=== PATIENT | male | born 1955 | race Caucasian/White ===

== ENCOUNTER 2018-01-02 10:34 | Emergency (ER) | payer MEDICARE ==
[2014-02-02 08:42] VITALS: BMI 70.9
[~2018-01-02 10:34] MED LIST: AMBIEN10 MG PO; CEFTRIAXONE2 G/50 ML IV; CLEOCIN HCL300 MG PO; DILAUDID INJ2 MG/ML IV; K-DUR20 MEQ PO; LAC-HYDRIN 5226 ML TP; LASIX40 MG PO; LEVAQUIN750 MG PO; LOVENOX40 MG/0.4 SQ; NORCO 10/325 TA1 TA1 PO; ONDANSETRON4 MG/2 M3 IV; PHENERGAN25 MG/ML IV; SALINE FLUSH10 ML IV; SOMA350 MG PO; VANCOMYCIN 500500 MG IVPB; VANCOMYCIN250 MG/51 IV
[2018-01-02 11:09] LABS: BASOPHILS 0.5 % (0-2); EOSINOPHILS 5.3 % (0-7); HEMATOCRIT 41.1 % (42.0-54.0); HEMOGLOBIN 14.7 g/dL (13.5-17.5); IMMATURE GRANULOCYTES 0.3 % (0-5); LYMPHOCYTES 22.6 % (15-50); MCH 32.2 pg (26.0-34.0); MCHC 35.8 g/dL (31.0-37.0); MCV 89.9 fL (80.0-100.0); MEAN PLATELET VOLUME 10.3 fL (7.4-10.4); MONOCYTES 8.8 % (2-11); NEUTROPHILS 62.5 % (40-80); PLATELET COUNT 223 10x3/uL (130-400); RBC 4.57 10x6/uL (4.20-6.10); RDW 13.5 % (11.5-14.5); WBC 3.8 10x3/uL (4.8-10.8)
[2018-01-02 11:59] LABS: ALBUMIN 3.6 g/dL (3.4-5.0); ALKALINE PHOSPHATASE 29 U/L (46-116); ALT (SGPT) 31 U/L (10-68); CALC OSMOLALITY 282 mosm/kg (275-300); CALCIUM 8.9 mg/dL (8.5-10.1); CARBON DIOXIDE 32.1 mmol/L (21.0-32.0); CHLORIDE - SERUM 104 mmol/L (98-107); CREATININE - SERUM 0.9 mg/dL (0.6-1.3); GLUCOSE 96 mg/dL (74-106); POTASSIUM - SERUM 3.8 mmol/L (3.5-5.1); PROTEIN - SERUM 6.9 g/dL (6.4-8.2); SODIUM 141 mmol/L (136-145); UREA NITROGEN 18 mg/dL (7-18); eGFR NON AFRICAN AMERICAN > 90 mL/min (90-120)
[2018-01-02 12:12] LABS: CKMB 0.4 U/L (0.0-3.6); CREATINE KINASE 37 UL (21-232); PRO BNP 19 pg/mL (0-125)
[2018-01-02 12:15] LABS: TROPONIN-I < 0.017 ng/mL (0.000-0.060)
== END 2018-01-02 12:50 | disposition home or self-care (01) ==
LOC: D.ER 10:34
PROVIDERS: Family Medicine
DX: R07.9 Chest pain, unspecified (principal)

== ENCOUNTER 2018-12-16 17:52 | Inpatient (IN) | payer MEDICARE ==
[~2018-12-16] VITALS: Ht 175.3 cm; Wt 211.4 kg
[2018-12-16 18:31] LABS: BASOPHILS 0.2 % (0-2); EOSINOPHILS 0 % (0-7); HEMATOCRIT 43.7 % (42.0-54.0); HEMOGLOBIN 14.7 g/dL (13.5-17.5); IMMATURE GRANULOCYTES 1.1 % (0-5); MCH 30.4 pg (26.0-34.0); MCHC 33.6 g/dL (31.0-37.0); MCV 90.3 fL (80.0-100.0); MEAN PLATELET VOLUME 10.2 fL (7.4-10.4); MONOCYTES 3.4 % (2-11); NEUTROPHILS 91.3 % (40-80); PLATELET COUNT 190 10x3/uL (130-400); RBC 4.84 10x6/uL (4.20-6.10); RDW 14.6 % (11.5-14.5); WBC 12.4 10x3/uL (4.8-10.8)
[2018-12-16] MEDS ORDERED: SULFAMETHOXAZOL1 TA3 PO (18:37)
[2018-12-16] MEDS ORDERED: BACLOFEN20 M1 PO (18:38)
[2018-12-16 18:45] LABS: ALBUMIN 2.9 g/dL (3.4-5.0); ANION GAP 16.2 mmol/L (8-16); BILIRUBIN - TOTAL 0.9 mg/dL (0.2-1.3); CALCIUM 8.2 mg/dL (8.5-10.1); CARBON DIOXIDE 22.9 mmol/L (21.0-32.0); CREATININE - SERUM 1.6 mg/dL (0.6-1.3); POTASSIUM - SERUM 4.1 mmol/L (3.5-5.1); PROTEIN - SERUM 6.7 g/dL (6.4-8.2)
--- NOTE | 2018-12-16 19:15 | NUR ---
SPOKE WITH LEANA WITH PHARMACY ABOUT ORDERED VANC 1.5 G INSTRUCTED TO ADMINISTER OVER 2 HOURS NOT 90 MIN ORDER PREVIOUSLY STATED. HANDOFF REPORT GIVEN TO MARGOTH GUTIERREZ.
[2018-12-16 19:17] VITALS: BP 126/62
--- NOTE | 2018-12-16 19:29 | NUR ---
PT'S LACTIC ACID 3.5, DR COURTNEY CONTACTED AND NOTIFIED, NO NEW ORDERS GIVEN.
[2018-12-16 20:32] VITALS: BP 120/52
[2018-12-17 00:10] VITALS: BP 116/58
[2018-12-17 03:58] VITALS: BP 106/50
[2018-12-17 06:37] LABS: BASOPHILS 0.1 % (0-2); EOSINOPHILS 0.1 % (0-7); HEMOGLOBIN 12.5 g/dL (13.5-17.5); IMMATURE GRANULOCYTES 0.7 % (0-5); LYMPHOCYTES 4.6 % (15-50); MCH 29.6 pg (26.0-34.0); MCHC 32.9 g/dL (31.0-37.0); MEAN PLATELET VOLUME 10.6 fL (7.4-10.4); MONOCYTES 4.3 % (2-11); NEUTROPHILS 90.2 % (40-80); PLATELET COUNT 167 10x3/uL (130-400); RBC 4.22 10x6/uL (4.20-6.10); RDW 14.8 % (11.5-14.5); WBC 9.8 10x3/uL (4.8-10.8)
[2018-12-17 06:51] LABS: ALBUMIN 2.2 g/dL (3.4-5.0); ANION GAP 14.8 mmol/L (8-16); BILIRUBIN - TOTAL 0.75 mg/dL (0.2-1.3); CALCIUM 7.7 mg/dL (8.5-10.1); CARBON DIOXIDE 23.5 mmol/L (21.0-32.0); CREATININE - SERUM 1.3 mg/dL (0.6-1.3); MAGNESIUM - SERUM 1.6 mg/dL (1.8-2.4); POTASSIUM - SERUM 4.3 mmol/L (3.5-5.1); PROTEIN - SERUM 5.6 g/dL (6.4-8.2)
[2018-12-17 08:23] VITALS: BP 93/69
--- NOTE | 2018-12-17 08:26 | NUR ---
PT RESTING IN BED. NO SIGNS OF DISTRESS. IV TO LEFT AC PATENT NO REDNESS OR TENDERNESS. ON TELEMETRY 105 SINUS TACH. LEGS SWOLLEN. DENIES ANY NEED AT THIS TIME. CALL LIGHT IN REACH. BED LOW POSITION. FAMILY AT BEDSIDE.
[2018-12-17 09:54] LABS: APPEARANCE HAZY (CLEAR); BILIRUBIN NEGATIVE (NEGATIVE); COLOR DK YELLOW (YELLOW); GLUCOSE NEGATIVE (NEGATIVE); KETONE NEGATIVE (NEGATIVE); NITRITE NEGATIVE (NEGATIVE); PROTEIN TRACE mg/dL (NEGATIVE); UROBILINOGEN NORMAL (NORMAL)
[2018-12-17 09:59] LABS: AMORPHOUS SEDIMENT <1+ /lpf (NONE SEEN); BACTERIA FEW /hpf (NONE SEEN); EPITHELIAL CELLS OCC /hpf (0-5); GRANULAR CAST OCC /lpf (NONE SEEN); HYALINE CAST RARE /lpf (NONE SEEN); RED CELLS - URINE RARE /hpf (0-5); WHITE CELLS - URINE OCC /hpf (0-5)
[2018-12-17 10:30] VITALS: BMI 66.4
[2018-12-17 13:17] VITALS: BP 101/64
--- NOTE | 2018-12-17 13:28 | NUR ---
RN ROUNDING DONE WITH MARYLIN WOLFE PRIMARY NURSE IN ROOM GIVING IV PAIN MEDICATION. PATIENT RIGHT LEG FROM UPPER THIGH TO FOOT IS VERY SWOLLEN AND RED. PATIENT REPORTS THAT SINCE 2008 IT STARTED AND JUST GETTING BIGGER WITH TIME. GROIN IS RED AND SWOLLEN. TORI JIMÉNEZ WITH GENERAL SURGERY IN ROOM ALSO.
--- NOTE | 2018-12-17 14:44 | MORECARE ---
CASE MANAGEMENT DISCHARGE SUMMARY PATIENT: SHELIA MIGUEL UNIT: [id number] ADM DATE: 12/16/18 AGE: 63 : 59 SEX: M ROOM/BED: D.1207 AUTHOR: GABY SHEPARD PHYSICIAN: REFERRING PHYSICIAN: ELISHA COURTNEY DO DATE OF SERVICE: 12/17/18 Discharge Plan Patient Name: SHELIA MIGUEL Facility: [facility]:[place] : 1955 Planned Disposition: Anticipated Discharge Date: Discharge Date: Expected LOS: Initial Reviewer: [email or web address] Initial Review Date: 12/17/2018 Generated: 12/17/18 3:44 pm Comments DCP- Discharge Planning Updated by [id number]: Nancy Garcia on 12/17/18 1:[address] Patient Name: SHELIA MIGUEL Admission Status: ER Accout number: [id number] Admission Date: 12-16-2018 : 1955 Admission Diagnosis: Attending: ELISHA COURTNEY Current LOS: 1 Anticipated DC Date: Planned Disposition: Primary Insurance: MEDICARE A & B Discharge Planning Comments: CM MET WITH PATIENT ABOUT DC PLANNING/NEEDS. PATIENT STATES HAS DME AT HOME, DOESN'T KNOW OF ANY NEEDS YET. CM WILL FOLLOW AND ASSIST NEEDED WITH DC PLANNING/NEEDS. STATES LIVES AT HOME WITH . Drying Room Attendant: Nancy Garcia DCPIA - Discharge Planning Initial Assessment Updated by [email or web address]: Nancy Garcia on 12/17/18 2:41 pm * Is the patient Alert and Oriented? Yes * PCP OLIVER * Pharmacy [facility] * Preadmission Environment Home with Family * ADLs Independent * Equipment Cane CPAP Hospital Bed * List name and contact numbers for known caregivers / representatives who currently or will assist patient after discharge: BECKY DICKINSON, * Community resources currently utilized None * Can the patient safely return to the preadmission environment? Yes * Has this patient been hospitalized within the prior 30 days at any hospital? No Patient Name: SHELIA MIGUEL Page [phone] at 1444 All edits/amendments must be made on the electronic document DICTATION DATE: 12/17/18 1443 BURLAPPER: BRAVO 12/17/18 1443 RPT#: [id number] DC DATE: STATUS: ADM IN [facility] [address] [place] [address] END OF REPORT
[2018-12-17 15:18] VITALS: Ht 175.3 cm; Wt 211.4 kg
[2018-12-17 16:54] VITALS: BP 102/46
[2018-12-17 20:10] VITALS: BP 136/55
[2018-12-18 00:54] VITALS: BP 141/53
[2018-12-18 05:03] VITALS: BP 112/67
[2018-12-18 06:47] LABS: BASOPHILS 0.1 % (0-2); EOSINOPHILS 0 % (0-7); HEMOGLOBIN 13.1 g/dL (13.5-17.5); IMMATURE GRANULOCYTES 0.3 % (0-5); LYMPHOCYTES 3.6 % (15-50); MCHC 33.6 g/dL (31.0-37.0); MCV 89.2 fL (80.0-100.0); MEAN PLATELET VOLUME 10.8 fL (7.4-10.4); MONOCYTES 2.4 % (2-11); NEUTROPHILS 93.6 % (40-80); PLATELET COUNT 164 10x3/uL (130-400); RBC 4.37 10x6/uL (4.20-6.10); RDW 14.6 % (11.5-14.5)
[2018-12-18 07:12] LABS: ALBUMIN 2.3 g/dL (3.4-5.0); ANION GAP 15.9 mmol/L (8-16); BILIRUBIN - TOTAL 0.82 mg/dL (0.2-1.3); CALCIUM 7.7 mg/dL (8.5-10.1); CARBON DIOXIDE 21.6 mmol/L (21.0-32.0); CREATININE - SERUM 1.1 mg/dL (0.6-1.3); MAGNESIUM - SERUM 1.8 mg/dL (1.8-2.4); POTASSIUM - SERUM 4.5 mmol/L (3.5-5.1); PROTEIN - SERUM 6.4 g/dL (6.4-8.2)
--- NOTE | 2018-12-18 07:45 | NUR ---
RESTING IN BED. PATIENT ON TELEMETRY, SR 71. CALL LIGHT WITHIN REACH. NO DISTRES. RESP EVEN AND UNLABORED.
[2018-12-18 09:20] VITALS: BP 108/67
[2018-12-18 12:12] VITALS: BP 110/57
--- NOTE | 2018-12-18 15:41 | NUR ---
22 GUAGE INSERTED TO R.FA X1 STICK. NOTIFIED PRIMARY NURSE.
--- NOTE | 2018-12-18 19:15 | NUR ---
PATIENT RESTING IN BED WITH NO S/S OF DISTRESS. PATIENT DENIES NEEDS AT THIS TIME. BED IN LOWEST POSITION AND CALL LIGHT WITHIN REACH. ENCOURAGED THE PATIENT TO CALL IF HE HAS NEEDS.
[2018-12-18 20:00] VITALS: BP 119/52
[2018-12-18 23:53] VITALS: BP 102/54
[2018-12-19 04:00] VITALS: BP 137/77
[2018-12-19 05:52] LABS: BASOPHILS 0.2 % (0-2); EOSINOPHILS 0 % (0-7); HEMATOCRIT 38.4 % (42.0-54.0); HEMOGLOBIN 12.9 g/dL (13.5-17.5); IMMATURE GRANULOCYTES 0.5 % (0-5); LYMPHOCYTES 4.3 % (15-50); MCH 29.6 pg (26.0-34.0); MCHC 33.6 g/dL (31.0-37.0); MCV 88.1 fL (80.0-100.0); MEAN PLATELET VOLUME 10.4 fL (7.4-10.4); MONOCYTES 3.6 % (2-11); NEUTROPHILS 91.4 % (40-80); PLATELET COUNT 193 10x3/uL (130-400); RBC 4.36 10x6/uL (4.20-6.10); RDW 14.3 % (11.5-14.5)
[2018-12-19 06:05] LABS: WBC 10.7 10x3/uL (4.8-10.8)
[2018-12-19 06:14] LABS: ALBUMIN 2.3 g/dL (3.4-5.0); ALKALINE PHOSPHATASE 19 U/L (46-116); ALT (SGPT) 20 U/L (10-68); BILIRUBIN - TOTAL 0.46 mg/dL (0.2-1.3); CALC OSMOLALITY 279 mosm/kg (275-300); CALCIUM 7.8 mg/dL (8.5-10.1); CARBON DIOXIDE 22.3 mmol/L (21.0-32.0); CHLORIDE - SERUM 103 mmol/L (98-107); CREATININE - SERUM 0.9 mg/dL (0.6-1.3); GLUCOSE 169 mg/dL (74-106); MAGNESIUM - SERUM 2.1 mg/dL (1.8-2.4); POTASSIUM - SERUM 4.5 mmol/L (3.5-5.1); PROTEIN - SERUM 6.4 g/dL (6.4-8.2); SODIUM 136 mmol/L (136-145); UREA NITROGEN 23 mg/dL (7-18); VANCOMYCIN - TROUGH 11.8 ug/mL (10.0-20.0); eGFR NON AFRICAN AMERICAN > 90 mL/min (90-120)
--- NOTE | 2018-12-19 07:35 | NUR ---
PT RESTING IN BED, EYES OPEN. NO C/O PAIN. NO S/S OF ACUTE DISTRESS NOTED. PT ALERT AND ORIENTED. BLE SWOLLEN, CELLULITIS TO RIGHT LOWER LEG, DRAINING SEROUS FLUID. PT ON ELECTROLYTE PROTOCOL. IV TO RIGHT FOREARM, SITE PATENT WITHOUT REDNESS OR SWELLING, NS INFUSING @ 125ML/HR. PT ON TELEMETRY 68SR. AT BEDSIDE. PT DENIES ANYTHING FURTHER AT THIS TIME. CALL LIGHT IN REACH. WILL CONTINUE TO MONITOR.
[2018-12-19 10:11] VITALS: BP 110/52
[2018-12-19 12:00] VITALS: BP 117/65
[2018-12-19 16:00] VITALS: BP 128/71
--- NOTE | 2018-12-19 19:15 | NUR ---
PT RESTING IN BED, EYES OPEN. NO C/O PAIN. NO S/S OF ACUTE DISTRESS NOTED. PT DENIES ANYTHING FURTHER AT THIS TIME. CALL LIGHT IN REACH. WILL CONTINUE TO MONITOR.
[2018-12-19 19:55] VITALS: BP 119/68
[2018-12-19 23:41] VITALS: BP 115/60
[2018-12-20 03:46] VITALS: BP 136/72
[2018-12-20 05:58] LABS: BASOPHILS 0.2 % (0-2); EOSINOPHILS 0 % (0-7); HEMATOCRIT 38.6 % (42.0-54.0); HEMOGLOBIN 13.2 g/dL (13.5-17.5); IMMATURE GRANULOCYTES 1.8 % (0-5); MCHC 34.2 g/dL (31.0-37.0); MCV 87.7 fL (80.0-100.0); MEAN PLATELET VOLUME 10.9 fL (7.4-10.4); MONOCYTES 4.9 % (2-11); NEUTROPHILS 88.1 % (40-80); PLATELET COUNT 230 10x3/uL (130-400); RDW 14.5 % (11.5-14.5); WBC 8.8 10x3/uL (4.8-10.8)
[2018-12-20 06:32] LABS: ALBUMIN 2.4 g/dL (3.4-5.0); ALKALINE PHOSPHATASE 22 U/L (46-116); CALC OSMOLALITY 281 mosm/kg (275-300); CALCIUM 7.9 mg/dL (8.5-10.1); CARBON DIOXIDE 22.6 mmol/L (21.0-32.0); CHLORIDE - SERUM 103 mmol/L (98-107); CREATININE - SERUM 0.9 mg/dL (0.6-1.3); GLUCOSE 159 mg/dL (74-106); MAGNESIUM - SERUM 2.2 mg/dL (1.8-2.4); POTASSIUM - SERUM 4.4 mmol/L (3.5-5.1); PROTEIN - SERUM 6.8 g/dL (6.4-8.2); SODIUM 137 mmol/L (136-145); UREA NITROGEN 26 mg/dL (7-18); VANCOMYCIN - TROUGH 19.4 ug/mL (10.0-20.0); eGFR NON AFRICAN AMERICAN > 90 mL/min (90-120)
[2018-12-20 06:35] LABS: ALT (SGPT) 38 U/L (10-68)
--- NOTE | 2018-12-20 07:30 | NUR ---
NOTIFIED BY FACILITIES PROJECT MANAGER THAT PT WANTS HIS IV FLUSHED, STATED THAT EVERYTIME THE ANTIBIOTIC INFUSING HIS ARM STARTS BURING AND GETS RED AROUND SITE, BUT AFTER ITS FLUSHED IT GETS BETTER. IV FLUSHED AT THIS TIME. SITE A LITTLE RED BUT PT STATES THAT IT DOES NOT BURN ANYMORE, WILL KEEP CLOSE EYE ON IV TO MAKE SURE ITS NOT INFILTRATED. PT A/O X4, RESP EVEN AND NONLABORED ON. PT DENIES ANY OTHER NEEDS AT THIS TIME. CALL LIGHT IN REACH, NAD NOTED, WILL CONTINUE TO MONITOR.
[2018-12-20 07:56] VITALS: BP 126/69
--- NOTE | 2018-12-20 09:07 | NUR ---
AM MEDS GIVEN AT THIS TIME. ALSO GAVE NORCO FOR PAIN LEVEL OF 4/10. PT DENIES ANY OTHER NEEDS AT THIS TIME. CALL LIGHT IN REACH, NAD NOTED,W ILL CONTINUE TO MONITOR.
[2018-12-20 10:10] LABS: % SATURATION 18 % (15-55); IRON 39 ug/dl (35-150); TOTAL IRON BIND CAPACITY 210 ug/dl (260-445); UNSAT IRON BIND CAPACITY 171 ug/dl (150-375)
--- NOTE | 2018-12-20 11:21 | NUR ---
1MG OF DILAUDID GIVEN FOR PAIN LEVEL OF 6/10. PT DENIES ANY OTHER NEEDS AT THIS TIME. CALL LIGHT IN REACH,NAD NOTED, WILL CONTINUE TO MONITOR.
[2018-12-20 12:52] VITALS: BP 121/66
--- NOTE | 2018-12-20 12:57 | NUR ---
CALLED PHARMACY AND SPOKE WITH BRANDO, INFORMED HIM THAT I NEED SOLU-MEDROL FOR PT.
--- NOTE | 2018-12-20 13:39 | NUR ---
CALLED PHARMACY AND JENNIFER GRAHAM THAT I NEED SOLU-MEDROL FOR PT.
[2018-12-20 15:44] VITALS: BP 129/62
--- NOTE | 2018-12-20 19:44 | NUR ---
PATIENT RESTING IN BED AND DENIES NEEDS AT THIS TIME. BED IN LOWEST POSITION AND CALL LIGHT WITHIN REACH. ENCOURAGED THE PATIENT TO CALL IF HE HAS NEEDS. WILL CONTINUE TO MONITOR.
[2018-12-20 21:00] VITALS: BP 121/58
[2018-12-21] VITALS: BP 155/79
[2018-12-21 05:04] VITALS: BP 129/59
[2018-12-21 06:37] LABS: ALBUMIN 2.2 g/dL (3.4-5.0); ALKALINE PHOSPHATASE 22 U/L (46-116); CALC OSMOLALITY 282 mosm/kg (275-300); CALCIUM 7.6 mg/dL (8.5-10.1); CHLORIDE - SERUM 105 mmol/L (98-107); CREATININE - SERUM 0.8 mg/dL (0.6-1.3); GLUCOSE 159 mg/dL (74-106); MAGNESIUM - SERUM 2.2 mg/dL (1.8-2.4); POTASSIUM - SERUM 4.4 mmol/L (3.5-5.1); PROTEIN - SERUM 6.5 g/dL (6.4-8.2); SODIUM 138 mmol/L (136-145); UREA NITROGEN 24 mg/dL (7-18); eGFR NON AFRICAN AMERICAN > 90 mL/min (90-120)
[2018-12-21 06:38] LABS: BASOPHILS 0.8 % (0-2); EOSINOPHILS 0 % (0-7); IMMATURE GRANULOCYTES 7.1 % (0-5); LYMPHOCYTES 7.6 % (15-50); MCH 29.5 pg (26.0-34.0); MCHC 33.3 g/dL (31.0-37.0); MCV 88.4 fL (80.0-100.0); MEAN PLATELET VOLUME 10.6 fL (7.4-10.4); MONOCYTES 4.7 % (2-11); NEUTROPHILS 79.8 % (40-80); PLATELET COUNT 239 10x3/uL (130-400); RBC 4.41 10x6/uL (4.20-6.10); RDW 14.4 % (11.5-14.5); WBC 7.6 10x3/uL (4.8-10.8)
[2018-12-21 06:40] LABS: ALT (SGPT) 56 U/L (10-68)
--- NOTE | 2018-12-21 07:15 | NUR ---
REC'D SITTING ON SIDE OF BED AWAKE AND ALERT. RESP EVEN AND UNLABORED WITH NO DISTRESS NOTED. CAN EXPRESS NEEDS AND WANTS. NO C/O NOTED OR VOICED AT THIS TIME. ASSESSMENT COMPLETED. C/L IN REACH AT BEDSIDE.
[2018-12-21 09:18] LABS: FOLATE (FOLIC ACID) - SERUM 2.9 ng/mL (>3.0)
--- NOTE | 2018-12-21 09:49 | NUR ---
Nutrition Follow Up: Chart reviewed Diet: AHA PO Intake: 97% meal avg BM: 12/20/18 Labs reviewed Meds noted including Solu Medrol Rec continue current diet. RD following.
--- NOTE | 2018-12-21 10:02 | NUR ---
NORCO GIVEN FOR PAIN LEVEL OF 4/10. PT A/O X4, RESP EVEN AND NONLABORED ON RA. CALL LIGHT IN REACH, AT BEDSIDE,NAD NOTED.
--- NOTE | 2018-12-21 12:11 | NUR ---
MEDICATED WITH DILAUDID 1 MG PER ORDERS FOR C/O PAIN TO LEGS. C/L IN REACH AT BEDSIDE
--- NOTE | 2018-12-21 14:53 | NUR ---
MEDCIATED WITH NORCO FOR C/O LEG PAIN RATING 4/10 ON PAIN SCALE. C/L IN REACH AT BEDSIDE.
--- NOTE | 2018-12-21 19:23 | NUR ---
PATIENT RESTING IN BED AND DENIES NEEDS AT THIS TIME. PATIENT ASKED WHEN NEXT DOSE OF LASIX IS DUE. REVIEWED MEDS WITH THE PATIENT. PATIENT ASKED TO RETIME LASIX SO THAT HE IS NOT UP ALL NIGHT URINATING. PATIENT DENIES OTHER NEEDS AT THIS TIME. BED IN LOWEST POSITION AND CALL LIGHT WITHIN REACH. ENCOURAGED THE PATIENT TO CALL IF HE HAS NEEDS. WILL CONTINUE TO MONITOR.
[2018-12-21 20:00] VITALS: BP 142/69
[2018-12-22] VITALS: BP 128/71
[2018-12-22 04:50] VITALS: BP 135/88
--- NOTE | 2018-12-22 08:20 | NUR ---
AM MEDS GIVEN AT THIS TIME. PT A/O X4, RESP EVEN AND REGULAR ON RA. LT PICC SL AT THIS TIME. PROVIDED PT WITH EXTRA TOWELS. PT DENIES ANY NEEDS AT THIS TIME, CALL LIGHT IN REACH,NAD NOTED, WILL CONTINUE TO MONITOR.
[2018-12-22 08:51] VITALS: BP 151/84
--- NOTE | 2018-12-22 12:42 | NUR ---
ADMINISTERED 1MG OF DILAUDID FOR PAIN LEVEL OF 8/10. PT IN BED, DENIES ANY OTHER NEEDS AT THIS TIME, CALL LIGHT IN REACH,NAD NOTED, WILL CONTINUE TO MONITOR.
[2018-12-22 19:04] VITALS: BP 144/75
--- NOTE | 2018-12-22 19:41 | NUR ---
SETTING UP ON BEDSIDE CALL LIGHT IN REACH AND BED LOW LASIX GIVEN AT THIS TIME PATIENT TOLERATES UP ADLIB PIC TO LEFT ARM PATENT, NO REDNESS OR EDEMA AT SITE NOTED POSSIBLE DRSG CHANGE NEEDED LCTA BOWEL SOUNDS X4 DENIES OTHER NEEDS AT THIS TIME STATES I HAVE SOME PAIN BUT ITS NOT BAD
[2018-12-22 20:00] VITALS: BP 114/71
[2018-12-22 23:56] VITALS: BP 142/75
--- NOTE | 2018-12-23 02:58 | NUR ---
PT ASLEEP. RESP EVEN AND UNLABORED. PT ON ROOM AIR. NO S/S OF DISTRESS. BEDLOW AND CALL LIGHT IN REACH. WILL CPOC
--- NOTE | 2018-12-23 03:56 | NUR ---
PT COMPLAINS OF PAIN. NORCO GIVEN ORDERED. WILL CPOC
[2018-12-23 04:00] VITALS: BP 134/68
[2018-12-23 07:14] LABS: CALC OSMOLALITY 284 mosm/kg (275-300); CALCIUM 7.7 mg/dL (8.5-10.1); CARBON DIOXIDE 27.2 mmol/L (21.0-32.0); CHLORIDE - SERUM 106 mmol/L (98-107); CREATININE - SERUM 0.9 mg/dL (0.6-1.3); POTASSIUM - SERUM 3.9 mmol/L (3.5-5.1); SODIUM 140 mmol/L (136-145); UREA NITROGEN 30 mg/dL (7-18); VANCOMYCIN - TROUGH 40.2 ug/mL (10.0-20.0); eGFR NON AFRICAN AMERICAN > 90 mL/min (90-120)
[2018-12-23 07:19] LABS: GLUCOSE 103 mg/dL (74-106)
--- NOTE | 2018-12-23 08:37 | NUR ---
VANCOMYCIN TROUGH WAS 40.2, DOSE WAS INFUSING WHILE BLOOD WAS BEING DRAWN WILL ATTEMPT TO GET A TROUGH AT NOON TODAY
--- NOTE | 2018-12-23 11:21 | NUR ---
DENIES ANY NEEDS AT THIS TIME.
--- NOTE | 2018-12-23 14:29 | NUR ---
VANCOMYCIN TROUGH WAS 20.3 DRAWN ABOUT AN HOUR LATE. WILL DECREASE THE DOSE DOWN TO 1 GRAM Q8H.
[2018-12-23 16:11] LABS: HEMATOCRIT 45.7 % (42.0-54.0); HEMOGLOBIN 15.2 g/dL (13.5-17.5); MCH 29.7 pg (26.0-34.0); MCHC 33.3 g/dL (31.0-37.0); MCV 89.4 fL (80.0-100.0); MEAN PLATELET VOLUME 12.1 fL (7.4-10.4); PLATELET COUNT 311 10x3/uL (130-400); RBC 5.11 10x6/uL (4.20-6.10); RDW 14.5 % (11.5-14.5); WBC 11.8 10x3/uL (4.8-10.8)
[2018-12-23 17:27] LABS: EOSINOPHILS 1 % (0-7); LYMPHOCYTES 8 % (15-50); MONOCYTES 8 % (2-11); NEUTROPHILS 70 % (40-80); PLATELET ESTIMATE NORMAL
--- NOTE | 2018-12-23 19:26 | NUR ---
PT IS AAO. UP AD KORY WITH A CANE. PT HAS RIGHT LEG REDNESS, DRY FLAKY SKIN. PT OBESE, LARGE ABDOMEN,THIGHS AND ANKLES. PT REPORTS HE HAD A BM THIS MORNING. 450ML OF URINE EMPTIED FROM URINAL, DARK,STRAW COLORED URINE. PT HAS LEFT UPPER ARM PICC. S/L. SWAB CAPS IN USE. NAME AND DATE PLACED ON BOARD. BEDLOW AND CALL LIGHT IN REACH. PT WILL CALL FOR ASSIST WHEN NEEDED. WILL CPOC
[2018-12-23 20:00] VITALS: BP 117/61
--- NOTE | 2018-12-23 22:14 | NUR ---
PT COMPLAINS OF PAIN. DILAUDID GIVEN ORDERED. PT IS AAO. WILL CALL FOR ASSIST WHEN NEEDED. WILL CPOC
[2018-12-23 23:49] VITALS: BP 126/69
--- NOTE | 2018-12-24 00:28 | NUR ---
PT GETTING BACK INTO BED. ASKING FOR NORCO. NORCO GIVEN ORDERED. PT WILL CALL FOR ASSIST WHEN NEEDED. NO S/S OF DISTRESS.
[2018-12-24 04:10] VITALS: BP 116/71
--- NOTE | 2018-12-24 04:20 | NUR ---
PT SITTING ON SIDE OF BED COMPLAINING OF PAIN. DILAUDID GIVEN ORDERED. [facility] PRIOR TO GIVING DILAUDID. PT DENIES ANY OTHER NEEDS. WILL CPOC
[2018-12-24 05:23] LABS: BASOPHILS 2.4 % (0-2); EOSINOPHILS 1.8 % (0-7); HEMATOCRIT 47.9 % (42.0-54.0); HEMOGLOBIN 16.1 g/dL (13.5-17.5); IMMATURE GRANULOCYTES 13.9 % (0-5); LYMPHOCYTES 10.4 % (15-50); MCH 29.8 pg (26.0-34.0); MCHC 33.6 g/dL (31.0-37.0); MCV 88.5 fL (80.0-100.0); MEAN PLATELET VOLUME 11.1 fL (7.4-10.4); MONOCYTES 5.3 % (2-11); NEUTROPHILS 66.2 % (40-80); PLATELET COUNT 245 10x3/uL (130-400); RBC 5.41 10x6/uL (4.20-6.10); RDW 14.3 % (11.5-14.5); WBC 12.5 10x3/uL (4.8-10.8)
[2018-12-24 05:35] LABS: CALC OSMOLALITY 286 mosm/kg (275-300); CALCIUM 7.9 mg/dL (8.5-10.1); CARBON DIOXIDE 27.6 mmol/L (21.0-32.0); CHLORIDE - SERUM 103 mmol/L (98-107); GLUCOSE 106 mg/dL (74-106); POTASSIUM - SERUM 4.1 mmol/L (3.5-5.1); SODIUM 141 mmol/L (136-145); UREA NITROGEN 30 mg/dL (7-18); eGFR NON AFRICAN AMERICAN 81 mL/min (90-120)
--- NOTE | 2018-12-24 07:36 | NUR ---
ROUNDING DONE WITH PATIENT SITTING UP IN BED WITH GLASSES ON EATING BREAKFAST. RIGHT LEG IS VERY SWOLLEN, DARK PINK, HAS SOME SEROUS DRAINAGE. PATIENT AND AT BEDSIDE STATES THAT IT BETTER THAN LAST WEEK. LEFT UPPER ARM PICC SEEN SALINE LOCK WITH C/D/I DRESSING.
[2018-12-24 08:28] VITALS: BP 121/72
--- NOTE | 2018-12-24 09:51 | NUR ---
The patient c/o pain and requests pain meds. Dilaudid 1 mg IV provided.
--- NOTE | 2018-12-24 10:30 | NUR ---
The patient denies pain at this time.
[2018-12-24 11:59] VITALS: BP 106/57
--- NOTE | 2018-12-24 12:30 | NUR ---
The patient is awake and alert, he is pleasant, denies any needs at this time.
[2018-12-24 16:24] VITALS: BP 101/57
--- NOTE | 2018-12-24 16:27 | NUR ---
The patient's telemetry rate is 10-125 per Miracle she asked me to check on him, did check him and he did get up and was going to the bathroom, called Miracle and let her know.
--- NOTE | 2018-12-24 16:57 | NUR ---
The patient c/o pain rates it 5/10 in his left leg, did provide dilaudid 1 mg IVP now.
--- NOTE | 2018-12-24 18:50 | NUR ---
The patient is pleasant he requests a pink pad, towels, and blue pads for his legs. Did provide pink pad, blue pads, and towels for him.
--- NOTE | 2018-12-24 19:32 | NUR ---
PT IS RESTING IN BED. PT AAO, UP AD KORY WITH CANE. PT HAS NO S/S OF DISTRESS. DENIES ANY NEEDS AT THIS TIME. NAME AND DATE PLACED ON BOARD. KOKI AND CALL LIGHT INREACH. WILL CPOC
[2018-12-24 20:00] VITALS: BP 120/15
--- NOTE | 2018-12-24 20:25 | NUR ---
NORCO GIVEN FOR LEG PAIN. PT IS AAO. DENIES ANY OTHER NEEDS. WILL CPOC
--- NOTE | 2018-12-24 22:56 | NUR ---
DILAUDID GIVEN FOR PAIN AND PT ATE A SNACK. PT DENIES ANY OTHER NEEDS. WILL CPOC
[2018-12-25] VITALS: BP 136/66
--- NOTE | 2018-12-25 00:48 | NUR ---
PT ASLEEP. AROUSED TO NURSE ENTERING ROOM. STARTED VANC, PT DENIES ANY NEEDS. NO S/S OF DISTRESS. WILL CPOC
[2018-12-25 04:00] VITALS: BP 120/65
--- NOTE | 2018-12-25 04:08 | NUR ---
PT COMPLAINS OF 3/10 PAIN IN LEG. NORCO GIVEN. PT DENIES ANY OTHER NEEDS. ELLIS COLBYOC
--- NOTE | 2018-12-25 06:12 | NUR ---
PT RIGHT LEG HAS WHITE AREA THAT HAS BLOOD DRAINING UNDERNEATH, LARGE PURPLE SWOLLEN AREA DIRECTLY UNDER THAT THAT IS WHEEPING. CLEANED AREA WITH ANTIMICROBIAL AND ANTISEPTIC AND PLACED ADAPTIC COVERED WITH ABD PADS. PAIN MED GIVEN FOR LEG PAIN. MORNING LABS DRAWN THROUGH LEFT PICC LINE. PT IS AAO AND DENIES ANY OTHER NEEDS. WILL CPOC
[2018-12-25 07:30] VITALS: BP 119/56
[2018-12-25 08:30] LABS: HEMATOCRIT 42.3 % (42.0-54.0); HEMOGLOBIN 14.3 g/dL (13.5-17.5); MCHC 33.8 g/dL (31.0-37.0); MCV 88.9 fL (80.0-100.0); MEAN PLATELET VOLUME 10.1 fL (7.4-10.4); PLATELET COUNT 256 10x3/uL (130-400); RBC 4.76 10x6/uL (4.20-6.10); RDW 14.3 % (11.5-14.5); WBC 8.6 10x3/uL (4.8-10.8)
[2018-12-25 08:36] LABS: CALC OSMOLALITY 287 mosm/kg (275-300); CALCIUM 7.6 mg/dL (8.5-10.1); CARBON DIOXIDE 29.6 mmol/L (21.0-32.0); CHLORIDE - SERUM 105 mmol/L (98-107); CREATININE - SERUM 0.8 mg/dL (0.6-1.3); GLUCOSE 108 mg/dL (74-106); POTASSIUM - SERUM 3.7 mmol/L (3.5-5.1); SODIUM 142 mmol/L (136-145); UREA NITROGEN 23 mg/dL (7-18); eGFR NON AFRICAN AMERICAN > 90 mL/min (90-120)
[2018-12-25 08:48] LABS: EOSINOPHILS 1 % (0-7); LYMPHOCYTES 15 % (15-50); MONOCYTES 3 % (2-11); NEUTROPHILS 80 % (40-80); PLATELET ESTIMATE NORMAL
--- NOTE | 2018-12-25 09:30 | NUR ---
PT AAOX4 RESP EVEN AND NONLABORED, NO SIGNS OF DISTRESS NOTED, FAMILY AT BEDSIDE, CL IN REACH
[2018-12-25 11:14] VITALS: BP 111/63
--- NOTE | 2018-12-25 11:25 | NUR ---
RESTING QUIETLY IN BED. DENIES ANY NEEDS AT THIS TIME.
[2018-12-25] MEDS ORDERED: CLEOCIN HCL300 MG PO (13:08)
[2018-12-25 19:27] VITALS: BP 142/88
--- NOTE | 2018-12-25 19:42 | NUR ---
PT REBEKAH TROUGH 25.6, REBEKAH HELD. INFORMED PT. NO FURTHER CONCERNS AT THIS TIME.
--- NOTE | 2018-12-25 21:33 | NUR ---
PT SITTING UP IN BED. DENIES PAIN AT THIS TIME. VITAL STABLE. MEDS TAKEN WITHOUT DIFFICULTY. A/O X 4. UP AB KORY. NORMAL SINUS ON TELE. L UPPER ARM PICC SL. ROOM AIR. HELD VANC. RLE WRAPPED, DRSG C/D/I. NO FURTHER CONCERNS AT THIS TIME. BED LOWERED AND LOCKED. CL IN REACH. WILL CPOC.
[2018-12-25 23:33] VITALS: BP 136/77
[2018-12-26 05:14] LABS: BASOPHILS 0.7 % (0-2); EOSINOPHILS 2.5 % (0-7); HEMATOCRIT 41.2 % (42.0-54.0); HEMOGLOBIN 13.7 g/dL (13.5-17.5); IMMATURE GRANULOCYTES 5.6 % (0-5); LYMPHOCYTES 10.3 % (15-50); MCH 29.7 pg (26.0-34.0); MCHC 33.3 g/dL (31.0-37.0); MCV 89.4 fL (80.0-100.0); MEAN PLATELET VOLUME 10.6 fL (7.4-10.4); MONOCYTES 8.7 % (2-11); NEUTROPHILS 72.2 % (40-80); PLATELET COUNT 233 10x3/uL (130-400); RBC 4.61 10x6/uL (4.20-6.10); RDW 14.4 % (11.5-14.5); WBC 7.5 10x3/uL (4.8-10.8)
[2018-12-26 05:25] LABS: CALC OSMOLALITY 282 mosm/kg (275-300); CALCIUM 7.7 mg/dL (8.5-10.1); CARBON DIOXIDE 29.7 mmol/L (21.0-32.0); CHLORIDE - SERUM 104 mmol/L (98-107); CREATININE - SERUM 0.9 mg/dL (0.6-1.3); GLUCOSE 109 mg/dL (74-106); POTASSIUM - SERUM 3.7 mmol/L (3.5-5.1); SODIUM 140 mmol/L (136-145); UREA NITROGEN 20 mg/dL (7-18); eGFR NON AFRICAN AMERICAN > 90 mL/min (90-120)
[2018-12-26 05:30] VITALS: BP 110/67
--- NOTE | 2018-12-26 05:33 | NUR ---
PT SITTING UP IN BED RESTING/WATCHING TV. STATES PAIN IN RLE 01/16 AND ASKED IF HE COULD HAVE HIS NORCO. NORCO GIVEN PER POLICY, SEE EMAR. NO FURTHER COMPLAINTS AT THIS TIME. BED LOWERED AND LOCKED. CL IN REACH. WILL CONTINUE TO [facility].
[2018-12-26 07:35] VITALS: BP 115/70
--- NOTE | 2018-12-26 07:53 | NUR ---
AWAKE AND ALERT.ORIENTED X3. C/O PAIN TO LEGS AT THIS TIME. WILL GIVE PRN WHEN TIME IS RIGHT. LUNGS ARE CLEAR BILATERALLY,NO COUGH NOTED. SKIN IS INTACT EXCEPT TO BILATERAL LOWER EXTREMETIES, WHICH ARE PURPLEISH AND EDEMATOUS WITH SOME WEEPING NOTED. LYMPHODEMA TO RIGHT LEG VERY PAINFUL PER PATIENT. PICC TO LEFT UPPER ARM IS PATENT. BLOOD DRAWN AND SENT TO LAB. DENIES OTHER NEEDS. BREAKFAST SERVED IN ROOM.
--- NOTE | 2018-12-26 08:52 | NUR ---
REQUESTED AND GIVEN 1MG DILAUDID SLOW IVP FOR C/O LEG PAIN LEVEL 5. WILL MONITOR.
--- NOTE | 2018-12-26 10:16 | NUR ---
REPORTS PAIN IMPROVED. VANC IS RUNNING PRIOR TO D/C HOME. HERE.
--- NOTE | 2018-12-26 11:47 | NUR ---
DISCHARGED TO HOME AMBULATORY WITH . DISCHARGE INSTRUCTIONS GIVEN BOTH VERBALLY AND WRITTEN. ALL QUESTIONS ANSWERED. PATIENT AND VERBALIZED UNDERSTANDING OF SAME. NEEDED PRESCRIPTIONS ESCRIBED TO PHARMACY OF CHOICE. ALL BELONGINGS WITH PATIENT.
--- NOTE | 2018-12-27 10:47 | MORECARE ---
CASE MANAGEMENT DISCHARGE SUMMARY PATIENT: SHELIA MIGUEL UNIT: [id number] ADM DATE: 12/16/18 AGE: 63 : 59 SEX: M ROOM/BED: D.1207 AUTHOR: GABY SHEPARD PHYSICIAN: REFERRING PHYSICIAN: ELISHA COURTNEY DO DATE OF SERVICE: 12/27/18 Discharge Plan Patient Name: SHELIA MIGUEL Facility: [facility]:[place] : 1955 Planned Disposition: Anticipated Discharge Date: Discharge Date: 12/26/2018 Expected LOS: Initial Reviewer: [email or web address] Initial Review Date: 12/17/2018 Generated: 12/27/18 11:47 am Comments DCP- Discharge Planning Updated by [email or web address]: Nancy Garcia on 12/17/18 1:[address] Patient Name: SHELIA MIGUEL Admission Status: ER Accout number: [id number] Admission Date: 12-16-2018 : 1955 Admission Diagnosis: Attending: ELISHA COURTNEY Current LOS: 1 Anticipated DC Date: Planned Disposition: Primary Insurance: MEDICARE A & B Discharge Planning Comments: CM MET WITH PATIENT ABOUT DC PLANNING/NEEDS. PATIENT STATES HAS DME AT HOME, DOESN'T KNOW OF ANY NEEDS YET. CM WILL FOLLOW AND ASSIST NEEDED WITH DC PLANNING/NEEDS. STATES LIVES AT HOME WITH . Tank Officer: Nancy Garcia DCPIA - Discharge Planning Initial Assessment Updated by [email or web address]: Nancy Garcia on 12/17/18 2:41 pm * Is the patient Alert and Oriented? Yes * PCP BENITO * Pharmacy [facility] * Preadmission Environment Home with Family * ADLs Independent * Equipment Cane CPAP Hospital Bed * List name and contact numbers for known caregivers / representatives who currently or will assist patient after discharge: BECKY DICKINSON, * Community resources currently utilized None * Can the patient safely return to the preadmission environment? Yes * Has this patient been hospitalized within the prior 30 days at any hospital? No Coverage Notice Reviewer: [email or web address] Tom Garcai Notice Issued Date-Time: 12/24/2018 16:22 Notice Type: IM Discharge Notice Notice Delivered To: Patient Relationship to Patient: Self Rotary Kiln Operator Name: Delivery Method: HAND - Hand Delivered Leelee Days: Prior Verbal Notification: Recipient Understood Notice: Yes Recipient Signature: Yes Med Rec Note Co-signed by Attending: Coverage Notice Comment: Last DP export: 12/17/18 1:44 pm Patient Name: SHELIA MIGUEL Page [id number] at 1047 All edits/amendments must be made on the electronic document DICTATION DATE: 12/27/18 1047 WEIGHT LOSS SALES CONSULTANT: BRAVO 12/27/18 1047 RPT#: [id number] DC DATE:12/26/18 STATUS: DIS IN [facility] [address] [place] [address] END OF REPORT
== END 2018-12-26 11:48 | disposition home or self-care (01) | DRG 603 ==
LOC: D.ER 17:52 → D.EDHOLD 18:53 → D.M3 18:53
PROVIDERS: Emergency Medicine; Internal Medicine Nephrology; ADMIT Family Medicine
PROC: 02HV33Z Insertion of Infusion Device into Superior Vena Cava, Percutaneous Approach (ICD-10-PCS; principal; 2018-12-20)
PROC: B548ZZA Ultrasonography of Superior Vena Cava, Guidance (ICD-10-PCS; 2018-12-20)
DX: L03.115 Cellulitis of right lower limb (principal); N17.9 Acute kidney failure, unspecified; E87.1 Hypo-osmolality and hyponatremia; Z68.44 Body mass index [BMI] 60.0-69.9, adult; I89.0 Lymphedema, not elsewhere classified; I87.8 Other specified disorders of veins; D64.9 Anemia, unspecified; E66.01 Morbid (severe) obesity due to excess calories; I87.2 Venous insufficiency (chronic) (peripheral)